=== PATIENT | male | born 1975 | race Asian ===

== ENCOUNTER 2019-12-30 03:48 | Emergency (ER) | payer SELFPAY | END 2019-12-30 03:56 | disposition left against medical advice (07) | LOC: ER 03:48 | DX: E11.9 Type 2 diabetes mellitus without complications (principal); Z53.21 Procedure and treatment not carried out due to patient leaving prior to being seen by health care provider ==

== ENCOUNTER 2020-01-08 20:14 | Emergency (ER) | payer MEDICAID ==
[~2020-01-08] VITALS: Ht 172.7 cm; Wt 72.0 kg
[2020-01-08 20:21] VITALS: BP 151/90
--- NOTE | 2020-01-08 21:09 | NUR ---
PT SEEN AND DC'D BY PROVIDER
== END 2020-01-08 21:13 | disposition home or self-care (01) ==
LOC: ER 20:14
DX: J06.9 Acute upper respiratory infection, unspecified (principal); E11.9 Type 2 diabetes mellitus without complications
CPT/HCPCS: 99281